=== PATIENT | female | born 1990 | race Caucasian/White ===

== ENCOUNTER 2016-12-11 21:35 | Emergency (ER) | payer BC ==
--- NOTE | ~2016-12-11 | ER ---
PATIENT'S NAME: AGUSTIN RATLIFF [facility] AGE: 26 Y [address] ROOM: [place] [address] LOCATION: [facility] ADMIT DATE: 12/11/2016 ER/Outpatient Report DISCHARGE DATE: FAMILY PHYSICIAN: PHYSICIAN, NO ATTENDING PHYSICIAN: Tommy Ortiz Time of Arrival: Time of Evaluation: Admission date and time documented in the medical record. I saw the patient at 2215 hours. CHIEF COMPLAINT: Right low back pain. HISTORY OF PRESENT ILLNESS: The patient is a 26-year-old female who around 0230 hours this afternoon was doing some straight leg lifting. She is on her back and lifted both legs up and had acute right lower back pain. Spasms that she could not even move. Finally was able to get up when she and was walking, and it has come back, and just really has not completely gone away. No sciatica. No bladder or bowel discomfort. She has had low back problems off and on for sometime. No fall or trauma. No recent colds, coughs, flus, fever, chills, or sweats. No lightheadedness, dizziness, syncope, or near syncope. No chest pain, shortness of breath. No abdominal pain. No nausea, vomiting, or diarrhea. No urinary symptoms. No joint or muscle swelling, redness, or pain other than the right lower back. No skin eruptions or rash. No neurological changes, psychiatric issues, or endocrine problems. HOME MEDICATIONS: See attached medication list. ALLERGIES: NONE. SOCIAL HISTORY: Nonsmoker. Occasional intake of alcohol. SIGNIFICANT PAST MEDICAL HISTORY: Intermittent low back muscle spasms and pain. PAST SURGICAL HISTORY: Operations: 1. Left knee surgery x3. 2. Craniotomy with brain tumor excision. 3. Right ankle surgery. PATIENT'S NAME: AGUSTIN RATLIFF [facility] AGE: 26 Y [address] ROOM: [place] [address] LOCATION: [facility] ADMIT DATE: 12/11/2016 ER/Outpatient Report DISCHARGE DATE: FAMILY PHYSICIAN: PHYSICIAN, NO ATTENDING PHYSICIAN: Tommy Ortiz REVIEW OF SYSTEMS: All systems reviewed by me are negative with the exception of those discussed in the History of the Present Illness. PHYSICAL EXAMINATION: VITAL SIGNS: Temperature 98.7, pulse 100, respirations 18, blood pressure 134/89, and O2 saturation on room air is 96%. HEENT: Negative. LUNGS: Clear. HEART: Regular. ABDOMEN: Soft, nontender. Good bowel tones. PELVIS: Stable. EXTREMITIES: Moves all 4 extremities. Good strength in all 4 extremities. No deformities. Straight leg raising, negative. BACK: The patient has tenderness over the right sacroiliac joint area and paraspinal lumbar muscles. NEUROLOGIC: Neurovascularly intact. SKIN: Clear. IMPRESSION: Right low back pain, muscular etiology. PLAN: The patient was given Toradol 60 mg, Dilaudid 1 mg, and Valium 5 mg IM in the emergency room. Discharged home. Observation. Activity as tolerated. Ice, heat, or combination as needed to the sore areas intermittently. Medrol Dosepak take as directed. Flexeril 10 mg 3 times a day, #30. [place] 10/350 as needed for pain, #20. Physical therapy as needed. Follow up with personal physician as needed. If no improvement in 2 weeks may need to have an MRI of the lumbar spine. Discussion ensued with the patient concerning my findings and recommendations, she understands. MD JAZMIN CARREON/modl /[id number] d: 12/11/16 2258 t: 12/12/16 1841, OUTPATIENT REPORT
== END 2016-12-11 22:50 | disposition disaster alternative care site (69) ==
LOC: GMED 21:35
DX: M54.5 Low back pain (principal)
CPT/HCPCS: J1170; J1885; J3360